=== PATIENT | female | born 1980 | race Asian ===

== ENCOUNTER 2024-01-29 12:01 | Emergency (ER) | payer OTHER ==
[~2024-01-29] VITALS: Ht 157.5 cm; Wt 45.4 kg
[2024-01-29 12:09] VITALS: BP_SYST 117; RESP 15; TEMP 97.8; O2SAT 98
[2024-01-29] MEDS ORDERED: DIF100 PO (12:24)
[2024-01-29 12:32] VITALS: BP_SYST 117; PULSE 86; RESP 15; TEMP 97.8; O2SAT 98
== END 2024-01-29 12:38 | disposition home or self-care (01) ==
LOC: SED 12:01
DX: B37.31 Acute candidiasis of vulva and vagina (principal)
CPT/HCPCS: 82948; 99283